=== PATIENT | male | born 1975 | race Caucasian/White ===

== ENCOUNTER 2019-05-23 19:56 | Emergency (ER) | payer MEDICAID ==
[~2019-05-23] VITALS: Ht 185.4 cm; Wt 104.3 kg
[2019-05-23] MEDS ORDERED: SEROQUEL 100 M100 M1 PO (20:06)
[2019-05-23] MEDS ORDERED: FLONASE ALLERG9.9 ML NASAL (20:08)
[2019-05-23] MEDS ORDERED: PRINIVIL10 MG PO (20:08)
[2019-05-23] MEDS ORDERED: BACTRIM DS TAB1 EAC1 PO (20:25)
[2019-05-23 20:44] VITALS: BP 120/85
== END 2019-05-23 20:46 | disposition home or self-care (01) ==
LOC: M.ERS 19:56
DX: L03.032 Cellulitis of left toe (principal); E78.00 Pure hypercholesterolemia, unspecified; F31.9 Bipolar disorder, unspecified; Z88.6 Allergy status to analgesic agent

== ENCOUNTER 2019-05-27 21:03 | Inpatient (IN) | payer MEDICAID ==
[~2019-05-27] VITALS: Ht 185.4 cm; Wt 104.3 kg
[~2019-05-27 21:03] MED LIST: BACTRIM DS TAB1 EAC1 PO; FLONASE ALLERG9.9 ML NASAL; PRINIVIL10 MG PO; SEROQUEL 100 M100 M1 PO
[2019-05-27 21:11] VITALS: BP 149/109
[2019-05-27] MEDS ORDERED: ZANTAC 150MG T150 M1 PO (21:11)
[2019-05-27 21:57] LABS: ABSOLUTE BASOPHILS 0.1 thou/uL (0.0-0.2); ABSOLUTE EOSINOPHILS 0.5 thou/uL (0.0-0.7); ABSOLUTE LYMPHOCYTES 1.8 thou/uL (0.8-5.3); ABSOLUTE MONOCYTES 0.8 thou/uL (0.0-1.2); ABSOLUTE NEUTROPHILS 7.9 thou/uL (1.6-8.1); BASOPHILS 0.6 %; EOSINOPHILS 4.6 %; HEMATOCRIT 48.3 % (42.0-52.0); HEMOGLOBIN 16.7 gm/dL (14.0-18.0); LYMPHOCYTES 16.5 %; MCH 29.1 pg (26.0-34.0); MCHC 34.5 g/dL (28.0-37.0); MCV 84.3 fL (80.0-100.0); MONOCYTES 7.6 %; MPV 6.6 fl. (7.2-11.1); NUCLEATED RBCS 0 /100WBC; PLATELET COUNT* 343 thou/uL (150-400); POLYS 70.7 %; RBC 5.73 mil/uL (4.50-6.00); RDW-CV 13.3 % (10.5-14.5); WBC 11.1 thou/uL (4.0-11.0)
[2019-05-27 22:09] LABS: CALCIUM 9.2 mg/dL (8.5-10.1); CREATININE 1.2 mg/dL (0.6-1.3)
[2019-05-27 22:13] LABS: ALBUMIN 3.7 g/dL (3.4-5.0); TOTAL BILIRUBIN 0.6 mg/dL (<0.1-1.0); TOTAL PROTEIN 7.4 g/dL (6.4-8.2)
[2019-05-28 00:05] VITALS: BP 138/85
[2019-05-28 07:46] VITALS: BP 132/90
[2019-05-28 16:28] VITALS: BP 128/89
[2019-05-28 20:00] VITALS: BP 153/93
[2019-05-28 21:16] LABS: URINE BILIRUBIN NEGATIVE (Negative); URINE BLOOD TRACE (Negative); URINE CLARITY CLEAR; URINE COLOR YELLOW; URINE GLUCOSE-RANDOM NEGATIVE (Negative); URINE KETONES NEGATIVE (Negative); URINE LEUKOCYTES-REFLEX NEGATIVE (Negative); URINE NITRITE-REFLEX NEGATIVE (Negative); URINE PROTEIN NEGATIVE (Negative); URINE SPECIFIC GRAVITY 1.025 (1.005-1.030); URINE UROBILINOGEN >= 8.0 E.U./dl (0.2-1.0)
[2019-05-29 03:57] LABS: ABSOLUTE BASOPHILS 0.1 thou/uL (0.0-0.2); ABSOLUTE EOSINOPHILS 0.5 thou/uL (0.0-0.7); ABSOLUTE LYMPHOCYTES 1.9 thou/uL (0.8-5.3); ABSOLUTE MONOCYTES 0.5 thou/uL (0.0-1.2); BASOPHILS 0.9 %; EOSINOPHILS 7.5 %; HEMATOCRIT 45.3 % (42.0-52.0); HEMOGLOBIN 15.4 gm/dL (14.0-18.0); LYMPHOCYTES 26.6 %; MCH 29.1 pg (26.0-34.0); MCV 85.8 fL (80.0-100.0); MONOCYTES 7.7 %; MPV 6.7 fl. (7.2-11.1); NUCLEATED RBCS 0 /100WBC; PLATELET COUNT* 297 thou/uL (150-400); POLYS 57.3 %; RBC 5.28 mil/uL (4.50-6.00); RDW-CV 12.9 % (10.5-14.5)
[2019-05-29 04:10] LABS: CREATININE 0.8 mg/dL (0.6-1.3); POTASSIUM 4.1 mmol/L (3.5-5.1)
[2019-05-29 08:10] VITALS: BP 138/85
--- NOTE | 2019-05-29 12:17 | CON ---
[address] [address] CONSULTATION Name: LEA HERNANDEZ Room: [address] IN M.R.#: [id number] Admission: 05/27/19 Attend Phys: Carlos Irvin Discharge: Date of : 71 Report #: [id number] THIS REPORT FOR: //name// CC: [facility] physician/PCP Nick Davis DATE OF SERVICE: 05/28/2019 INFECTIOUS DISEASE CONSULTATION ATTENDING PHYSICIAN: Dr. Davis. REASON FOR EVALUATION: Distal left lower extremity inflammatory eruption involving dorsal aspect of the foot, primarily centered on the fifth toe, suspected skin and soft tissue infection. HISTORY OF PRESENT ILLNESS: Chart reviewed, patient examined. This is a 43-year-old man with history of hypertension, who is not aware of any antecedent injury, had developed a left fifth toe pain and swelling, complicated erythema, did experience some hemorrhagic drainage as well for the last few days. He was initially evaluated in the Emergency Room, was felt to have an infectious component, treated with antibiotics, likely Augmentin; however, it worsened. Did experience some chills. Denied any significant pulmonary or gastrointestinal related complaints. Appetite has been generally good. He has had difficulty ambulating. Initial evaluation including blood cultures was unremarkable. CT of the foot did show changes consistent with soft tissue infection and cellulitis. There is no evidence of focal fluid collection or bony change. Lactic acid was 0.7. White count upper limits of normal. Empirically started on piperacillin and tazobactam, vancomycin, and given ceftriaxone. ALLERGIES: IBUPROFEN AND TRAMADOL. CURRENT MEDICATIONS: Include ceftriaxone, pantoprazole, enoxaparin, hydralazine as needed, ondansetron as needed. PAST MEDICAL HISTORY: Includes hypertension, high cholesterol, bipolar disease. SOCIAL HISTORY: Nonsmoker, no ethanol, no illicit drug use. FAMILY HISTORY: Noncontributory. REVIEW OF SYSTEMS: Otherwise, unremarkable 10-point review of systems noted the above. PHYSICAL EXAMINATION: [place] [address] CONSULTATION Name: LEA HERNANDEZ Room: [address] IN [facility].#: [id number] Admission: 05/27/19 Attend Phys: Carlos Irvin Discharge: Date of : 71 Report #: [id number] GENERAL: He is alert, cooperative, [id number] distress at this point, appears to be generally well nourished. VITAL SIGNS: Temperature 98.3, pulse 80, respirations 17, blood pressure 132/90. SKIN: Warm, dry. HEENT: Normocephalic. Extraocular muscles intact. NECK: Supple. LUNGS: Generally clear to auscultation. HEART: Regular. I do not appreciate any murmur. ABDOMEN: Obese, soft, nontender. EXTREMITIES: Left distal lower extremity, particularly the fourth, fifth web space has inflammatory changes. There is some hemorrhagic debris with crusting, moderate degree of inflammation noted. It is tender. I think there perhaps a degree of tinea pedis as well. Continue empiric antimicrobial therapy. Podiatry has been consulted. May benefit from some debridement as well. Continue elevation as described, see how he does clinically. I imagine a fairly quick transition to oral antibiotics. We will monitor expectantly. <ELECTRONICALLY SIGNED> By: Issa Tatum MD 05/29/19 1217 [id number] Tatum MD /nt
[2019-05-29 14:42] VITALS: BP 138/85
[2019-05-29] MEDS ORDERED: FLUCONAZOLE200 MG PO (15:05)
[2019-05-29] MEDS ORDERED: MINOCYCLINE HC100 M2 PO (15:05)
--- NOTE | 2019-05-31 09:54 | CON ---
[address] [address] CONSULTATION Name: DAVIDLEA MAY Room: [address] IN M.R.#: [id number] Admission: 05/27/19 Attend Phys: Carlos Irvin Discharge: 05/29/19 Date of : 71 Report #: [id number] THIS REPORT FOR: //name// CC: [facility] physician/PCP Nick Davis DATE OF SERVICE: 05/29/2019 ADMISSION DIAGNOSIS: Soft tissue infection with ulcer, left foot. CHIEF COMPLAINT: The patient is a 43-year-old male admitted for ulceration and soft tissue infection to the left fourth interdigital space. He denies foot injury, developed pain, swelling and erythema with sanguinous drainage over the last several days. He presented to the Emergency Room and was placed on oral antibiotic, possibly Augmentin, but had worsening symptoms with some chills. A CT scan consistent with cellulitis with no signs of bone destruction or discrete fluid collection. Currently on parenteral ceftriaxone. Blood and wound cultures are pending. Moderate pain with palpation, he has orders for fentanyl and acetaminophen. LABORATORY DATA: WBC 7.0, RBC 5.28, hemoglobin 15.4, hematocrit 45.3, platelets 297. BUN 22, creatinine 0.8, glucose 94. Lactic acid 0.7. Albumin 3.7. PHYSICAL EXAMINATION: VITAL SIGNS: Temperature 97.4, pulse 92, respirations 16, blood pressure 153/93. There is an interdigital ulceration to the between the left fourth and fifth toes. The wound probes roughly 0.5 cm. I can directly palpate or visualize bone. There is localized erythema and edema consistent with cellulitis. No fluctuance or crepitation. The area is moderately painful to palpation. There is some sanguineous drainage on his bandage, and unable to express a slight amount with compression over the wound. Foot is warm with strong dorsalis pedis and posterior tibial pulses. Good skin, hair growth with no signs of vascular embarrassment. No left popliteal adenopathy or calf pain. IMPRESSION: Ulceration to left fourth interdigital space with soft tissue infection, no signs of osteomyelitis or abscess. PLAN: The wound was irrigated, dried and packed with Aquacel Ag and covered with Kerlix roll gauze. The patient may remain partial weightbearing in a surgical shoe for transfers and short distances. I do not foresee any formal surgical debridement at this point. We will monitor daily. <ELECTRONICALLY SIGNED> By: Simon Johnson DPM 05/31/19 [id number] Johnson DPM /amparo
== END 2019-05-29 15:30 | disposition home or self-care (01) | DRG 603 ==
LOC: M.ERS 21:03 → M.3W 22:53 → M.TBA-ER 22:53 → M.3W 05-28 00:19
PROVIDERS: Internal Medicine; Personal Emergency Response Attendant; ADMIT Internal Medicine
DX: L03.116 Cellulitis of left lower limb (principal); R65.10 Systemic inflammatory response syndrome (SIRS) of non-infectious origin without acute organ dysfunction; I10 Essential (primary) hypertension; E78.00 Pure hypercholesterolemia, unspecified; F31.9 Bipolar disorder, unspecified; L97.529 Non-pressure chronic ulcer of other part of left foot with unspecified severity; D72.829 Elevated white blood cell count, unspecified; Z23 Encounter for immunization; Z88.6 Allergy status to analgesic agent; Z88.8 Allergy status to other drugs, medicaments and biological substances